=== PATIENT | female | born 1995 | race Caucasian/White ===

== ENCOUNTER 2018-06-28 15:21 | Outpatient (CLI) | payer SELFPAY ==
--- NOTE | 2018-06-28 16:05 | PC.NURSE ---
HERE FOR [facility] PRE EMPLOYMENT PHYSICAL
== END 2018-06-28 16:59 | disposition home or self-care (01) ==
LOC: UTC.OUT 15:23
PROVIDERS: Visit Provider Nurse Practitioner
DX: Z00.00 Encounter for general adult medical examination without abnormal findings (principal)

== ENCOUNTER 2019-04-09 09:00 | Outpatient (RCR) | payer OTHER, SELFPAY | END 2019-05-06 14:13 | disposition home or self-care (01) | LOC: PT.CARL 09:00 | PROVIDERS: PCP Family Medicine; Visit Provider Orthopaedic Surgery Adult Reconstructive Orthopaedic Surgery | DX: Z96.641 Presence of right artificial hip joint (principal); M25.551 Pain in right hip | CPT/HCPCS: 97010; 97014; 97110; 97112; 97116; 97140; 97163; G0283 ==

== ENCOUNTER → 2019-06-26 08:58 | Outpatient (CLI) | payer OTHER, SELFPAY ==
--- NOTE | 2019-06-26 08:59 | XR_ITS ---
PROCEDURE: XR DEXA AXIAL SKELETON CLINICAL HISTORY: HX FX HIP , SCREENING PRIOR TO DEPO SHOT COMPARISON: No exams were available for comparison FINDINGS: Left hip density is 0.589 grams/centimeters sq with a Z-score of -2.9. L1-L4 density is 1.037 grams/centimeters sq with a Z-score of 0.0. IMPRESSION: Low bone density of the left hip Dictated by: Emerson Kirby MD 07/03/2019 11:35 Electronically signed by Emerson Kirby MD in [place] 07/03/2019 11:35
== END ==
PROVIDERS: PCP Family Medicine; Visit Provider Nurse Practitioner Obstetrics & Gynecology
DX: Z13.820 Encounter for screening for osteoporosis (principal)
CPT/HCPCS: 77080

== ENCOUNTER 2020-04-30 17:10 | Emergency (ER) | payer OTHER, SELFPAY ==
[2020-04-30 17:22] VITALS: BP 149/75; PULSE 89; RESP 18; O2SAT 97; BMI 20.9
--- NOTE | 2020-04-30 17:37 | HMH.EDUTC ---
[facility] [place] Clinical Impression: Vomiting and diarrhea UTI (urinary tract infection) Qualifiers: Urinary tract infection type: site unspecified Hematuria presence: without hematuria Qualified Code(s): N39.0 - Urinary tract infection, site not specified Disposition: Home, Self-Care Condition on Discharge: Good Instructions: Nausea and Vomiting-Adult Additional Instructions: *Increase fluids. Water not Soda or Tea *Start antibiotic immediately and be sure to take as ordered for the FULL length of time although you should start to see improvement over the next 48 hours *Be SURE to follow up anytime for new or worsening symptoms with your family doctor. AND in 48 hours for urine culture results with your family doctor, if you do not have a doctor then you may call back to the [facility] for urine culture results and further treatment. We do recommend that you choose and establish care with a Primary Care Physician. AND follow up with them in 10-14 days to repeat UA to ensure infection is resolved and blood no longer present *Be sure to let your PCP know that we sent urine cultures from the [facility] so they can follow up to ensure that you area the on the correct antibiotic Call your doctor office and make appointment for 48 hours (2 days from today) to follow up and get the results of your urine culture and further treatment so you will know wether to continue antibotics or stop them ? Avoid fruit juices, as these do not replace minerals and can actually increase diarrhea. ? Children and adults can use sports drinks to replenish electrolytes. Younger children and infants should use products formulated for children, like oral rehydration solutions. ? Eat food in small amounts and let your stomach recover. ? Get lots of rest. You may feel tired or weak. ? No greasy or fried foods for the next 24-48 hours BRAT diet Bananas Rice Apples and [place] ? Make sure to drink plenty of liquids ? Return if needed ? Straight to ER if any life threatening symptoms or worsening of symptoms ? Zofran as prescribed ? You was given an outpatient order for diarrhea panel, please collect specimen and bring back to outpatient lab then call back to the [facility] or follow up with family doctor for results ? Follow up with family doctor in the next 48-72 hours if no improvement or any worsening of symptoms Follow up with Family Doctor if symptoms continue or worsen Prescriptions: Dicyclomine HCl [Bentyl 10mg capsule] 10 mg PO TID PRN #6 cap PRN Reason: Cramping Transmission Status: Received by [email or web address] # levoFLOXacin [Levaquin 500mg tab] 500 mg PO DAILY 5 Days #5 tab Transmission Status: Received by [email or web address] # Ondansetron [Zofran 4mg ODT] 4 mg PO TIDP PRN #10 tab PRN Reason: Nausea Transmission Status: Received by [email or web address] #[id number] Referrals: Aissatou Araiza [Primary Care Provider] - As needed Forms: Work/School Release Time of Disposition: 18:53 Medical Decision Making - Ghassan Inquiry Pt receiving controlled substance: No Ghassan was queried for this patient: No Vital Signs: 04/30/20 17:22 04/30/20 18:58 Temperature 98.1 F Temperature Source Oral Pulse Rate 89 Pulse Rate [Radial] 89 Respiratory Rate 18 18 Blood Pressure 149/75 H Blood Pressure [Right Arm] 149/75 H Blood Pressure Mean [Right Arm] 99 Blood Pressure Source Automatic Cuff Blood Pressure Source [Right Arm] Automatic Cuff Blood Pressure Position Sitting Blood Pressure Position [Right Arm] Sitting 02 Sat by Pulse Oximetry 97 Oxygen Delivery Method Room Air Room Air - Lab Data Lab results reviewed: Yes: I reviewed the patient's lab results. Lab Results 04/30/20 17:46: [facility] Negative 04/30/20 18:30: Urine Color Dark yellow, Urine Appearance Clear, Urine pH 6.0, Ur Specific [place] 1.030, Urine Protein 1+, Urine Glucose (UA) Negative, Urine Ketones Trace, Urine Blood Negative, Urine Nitrate Negative, Urine Bilir
[2020-04-30 18:29] LABS: UTC Pregnancy Test, Urine Negative (Negative)
[2020-04-30 18:30] LABS: Apearance,Urine Clear (Clear); Blood, Urine Negative (Negative); Color,Urine Dark Yellow (Yellow); Glucose,Urine (UA) Negative (Negative); Ketones,Urine TRACE (Negative); Protein,Urine 1+ (Negative)
[2020-04-30 18:31] LABS: Bilirubin,Urine 2+ (Negative); UTC Leukocyte Esterase,Urine Trace (Negative); UTC Nitrate,Urine Negative (Negative); Urobilinogen,Urine 1 EU/dl (0.2)
[2020-04-30 18:58] VITALS: BP 149/75; PULSE 89; RESP 18; TEMP 36.7; O2SAT 97
== END 2020-04-30 18:59 | disposition home or self-care (01) ==
PROVIDERS: Emergency Provider Nurse Practitioner; PCP Family Medicine
DX: Z20.828 Contact with and (suspected) exposure to other viral communicable diseases (principal); N39.0 Urinary tract infection, site not specified; Z88.0 Allergy status to penicillin
CPT/HCPCS: 81003; 81025; 87086; 96365; 96375; 99201; J2405; U0003

== ENCOUNTER 2020-11-05 16:52 | Outpatient (CLI) | payer OTHER, SELFPAY ==
[2020-11-05 17:10] VITALS: BMI 19.3
== END 2020-11-05 17:20 | disposition home or self-care (01) ==
PROVIDERS: Visit Provider Nurse Practitioner Family
DX: Z02.1 Encounter for pre-employment examination (principal)